=== PATIENT | female | born 1970 | race Caucasian/White ===

== ENCOUNTER 2023-10-01 10:36 | Outpatient (CLI) | payer MEDICAID, SELFPAY ==
[2023-10-01 11:18] LABS: Basophils # 0.1 K/mm3 (0-0.2); Basophils % 0.8 % (0.1-2.0); Eosinophils # 0.3 K/mm3 (0.0-0.4); Eosinophils % 4.3 % (0.1-12.0); Hemoglobin 12.4 g/dL (12.2-16.2); Lymphocytes % 28.8 % (10-50); Mean Corpuscular HGB Conc 31.7 g/dL (31.8-35.4); Mean Corpuscular Hemoglobin 27.2 pg (27.0-31.2); Mean Corpuscular Volume 85.8 fl (81-99); Mean Platelet Volume 8.4 fl (7.4-10.4); Monocytes # 0.2 K/mm3 (0.1-1.0); Monocytes % 3.3 % (1.7-9.3); Neutrophils # 4.3 K/mm3 (1.8-7.8); Neutrophils % 62.8 % (37.0-80.0); Platelet Count 303 K/mm3 (142-424); Red Blood Count 4.55 M/mm3 (4.20-5.40); Red Cell Distribution Width 14.7 % (11.5-17.5); White Blood Count 6.8 K/mm3 (4.8-10.8)
[2023-10-01 11:50] LABS: Alanine Aminotransferase 22 U/L (12-78); Albumin Level 4.5 g/dl (3.5-5.0); Albumin/Globulin Ratio 1.8 (1.1-1.8); Alkaline Phosphatase 133 U/L (38-126); Anion Gap 10.2 mEq/L (5-15); Aspartate Amino Transferase 29 U/L (14-36); Bilirubin,Total 0.5 mg/dl (0.2-1.3); Blood Urea Nitrogen 14 mg/dl (7-17); Calcium 9.8 mg/dl (8.4-10.2); Carbon Dioxide 28 mmol/L (22.0-30.0); Chloride 104 mmol/L (98-107); Estimated Glomerular Filt Rate 105 ml/min (>60); GFR (African American) 127 ML/MIN (>60); Globulin 2.5 g/dL (1.3-3.2); Glucose 89 mg/dl (74-100); Potassium 4.2 mmoL/L (3.5-5.1); Sodium 138 mmol/L (136-145)
[2023-10-01 11:59] LABS: C-Reactive Protein 17.2 mg/L (0-4)
[2023-10-01 12:05] LABS: Iron 61 ug/dL (37-170)
[2023-10-01 12:12] LABS: 25-OH Vitamin D, Total 26.8 ng/mL (30-100)
[2023-10-01 12:15] LABS: Total Iron Binding Capacity 345 ug/dL (265-497)
[2023-10-01 12:16] LABS: Erythrocyte Sedimentation Rate 82 mm/hr (0-30)
[2023-10-01 12:21] LABS: Thyroid Stimulating Hormone 0.85 uIU/mL (0.465-4.68)
[2023-10-01 12:40] LABS: Vitamin B12 444 pg/mL (239-931)
[2023-10-02 08:26] LABS: FSH 65.2 mIU/mL (.); LH 38.8 mIU/mL (.); Progesterone 0.4 ng/mL (.)
[2023-10-02 12:41] LABS: Anti-Cyclic Citrullinated Pept 5 units (0-19); Anti-DNA (DS) Ab Qn 1 IU/mL (0-9); Antichromatin Antibodies <0.2 AI (0.0-0.9); RA Latex Turbid. 10.1 IU/mL (<14.0); RNP Antibodies 0.2 AI (0.0-0.9); Sjogren's Anti-SS-A <0.2 AI (0.0-0.9); Sjogren's Anti-SS-B <0.2 AI (0.0-0.9)
[2023-10-03 16:32] LABS: H. pylori Breath Test Negative (Negative)
[2023-10-04 14:13] LABS: Lupus Reflex Interpretation Comment: (.); PTT-LA 39.6 sec (0.0-43.5); dRVVT 33.4 sec (0.0-47.0)
[2023-10-06 05:52] LABS: Free Testosterone (Direct) 0.5 pg/mL (0.0-4.2)
[2023-10-13 09:44] LABS: Antinuclear Antibodies, IFA Positive; Rheumatoid Factor IGA < 7 U (<7); Rheumatoid Factor IGM < 7 U (<7)
== END 2023-10-01 23:59 | disposition home or self-care (01) ==
LOC: LAB 10:42
PROVIDERS: PCP Nurse Practitioner Family; Visit Provider Nurse Practitioner Family
DX: N95.1 Menopausal and female climacteric states (principal); I73.00 Raynaud's syndrome without gangrene; K21.9 Gastro-esophageal reflux disease without esophagitis; E55.9 Vitamin D deficiency, unspecified; R53.83 Other fatigue; Z83.2 Family history of diseases of the blood and blood-forming organs and certain disorders involving the immune mechanism
CPT/HCPCS: 36415; 80053; 82306; 82607; 83001; 83002; 83013; 83540; 83550; 84144; 84439; 84443; 85025; 85613; 85651; 86038; 86140; 86200; 86225; 86235; 86431